=== PATIENT | male | born 1980 | race Caucasian/White ===

== ENCOUNTER 2018-05-14 21:04 | Emergency (ER) | payer OTHER ==
[~2018-05-14] VITALS: Ht 175.3 cm; Wt 68.0 kg
[~2018-05-14 21:04] MED LIST: KEFLEX500 MG PO; ZOFRAN4 MG PO
[2018-05-14 21:32] LABS: ABSOLUTE BASOPHILS 0.1 thou/uL (0.0-0.2); ABSOLUTE EOSINOPHILS 0.4 thou/uL (0.0-0.7); ABSOLUTE LYMPHOCYTES 2.4 thou/uL (0.8-5.3); ABSOLUTE MONOCYTES 0.5 thou/uL (0.0-1.2); ABSOLUTE NEUTROPHILS 3.2 thou/uL (1.6-8.1); BASOPHILS 0.9 %; EOSINOPHILS 5.7 %; HEMATOCRIT 39.6 % (42.0-52.0); HEMOGLOBIN 13.3 gm/dL (14.0-18.0); LYMPHOCYTES 35.9 %; MCH 30.4 pg (26.0-34.0); MCHC 33.6 g/dL (28.0-37.0); MCV 90.4 fL (80.0-100.0); MPV 8.6 fl. (7.2-11.1); NUCLEATED RBCS 0 /100WBC; PLATELET COUNT* 187 thou/uL (150-400); POLYS 49.5 %; RBC 4.38 mil/uL (4.50-6.00); RDW-CV 13.2 % (10.5-14.5); WBC 6.6 thou/uL (4.0-11.0)
[2018-05-14 21:36] LABS: ANION GAP 9 mmol/L (7-16); BUN 17 mg/dL (7-18); CALCIUM 8.6 mg/dL (8.5-10.1); CHLORIDE 107 mmol/L (98-107); CO2 26 mmol/L (21-32); CREATININE 0.8 mg/dL (0.6-1.3); GLUCOSE 106 mg/dL (70-99); POTASSIUM 3.7 mmol/L (3.5-5.1); SODIUM 142 mmol/L (136-145)
[2018-05-14 21:44] LABS: ALBUMIN 3.9 g/dL (3.4-5.0); ALKALINE PHOSPHATASE 46 U/L (46-116); SGOT 14 U/L (15-37); SGPT 22 U/L (30-65); TOTAL BILIRUBIN 0.2 mg/dL (<0.1-1.0); TOTAL PROTEIN 7.1 g/dL (6.4-8.2); TROPONIN-I LEVEL <0.06 ng/mL (<0.06)
[2018-05-14] MEDS ORDERED: CYCLOBENZAPRINE10 MG PO (23:26)
[2018-05-14] MEDS ORDERED: IBUPROFEN 800800 MG PO (23:26)
[2018-05-14 23:46] VITALS: BP 126/79
--- NOTE | 2018-05-15 17:04 | EKG ---
[place] [address] ELECTROCARDIOGRAM REPORT Name: ECHO RAMOS Room: [facility]#: [id number] Admission: 05/14/18 Attend Phys: Discharge: 05/14/18 Date of : 82 Report #: [id number] THIS REPORT FOR: //name// [facility] ED Test Date: 2018-05-14 Test Time: 21:13:32 Pat Name: ECHO RAMOS Department: Room: Gender: M [employer]ole[employer] Layer: ISHA : 1980 Requested By: Ruth Brown Order Number: [id number] MD: Alan Esquivel Measurements Intervals [place] Rate: 69 P: -45 [place]: 155 QRS: 11 QRSD: 97 T: 35 QT: 403 QTc: 432 Interpretive Statements Sinus or ectopic atrial rhythm ST elev, probable normal early repol pattern No previous ECG available for comparison Electronically Signed On 05-15-2018 17:04:44 CDT by Alan Esquivel [email or web address] <ELECTRONICALLY SIGNED> By: Alan Esquivel MD, [facility] 05/15/18 1704 2113 12 Alan Esquivel MD, FACC /EPI
== END 2018-05-14 23:48 | disposition home or self-care (01) ==
LOC: M.ERS 21:04
PROVIDERS: Nurse Practitioner Family
DX: M54.2 Cervicalgia (principal); R68.84 Jaw pain